=== PATIENT | male | born 1965 | race Caucasian/White ===

== ENCOUNTER 2022-09-06 18:48 | Emergency (ER) | payer OTHER ==
[~2022-09-06] VITALS: Ht 167.6 cm; Wt 65.8 kg
[2022-09-06 19:14] VITALS: BP_SYST 151
--- NOTE | 2022-09-06 19:45 | NUR ---
Dr Murrell evaluating patient in the triage room
--- NOTE | 2022-09-06 19:50 | NUR ---
Pt on ultrasound at this time
[2022-09-06 20:56] LABS: BASOPHILS # (AUTO) 0.1 K/uL (0.0-0.2); BASOPHILS % (AUTO) 0.7 % (0.0-2.0); EOSINOPHILS # (AUTO) 0.2 K/uL (0.0-0.4); EOSINOPHILS % (AUTO) 2.1 % (0.0-4.0); HEMATOCRIT 38.3 % (36-54); HEMOGLOBIN 12.8 g/dL (14.0-18.0); LYMPHOCYTES # (AUTO) 1.2 K/uL (1.0-5.5); LYMPHOCYTES % (AUTO) 13.1 % (20.5-51.5); MEAN CORPUSCULAR HEMOGLOBIN 33 pg (27-31); MEAN CORPUSCULAR HGB CONC 33 % (32-36); MEAN CORPUSCULAR VOLUME 99 fL (79.0-98.0); MONOCYTES # (AUTO) 1.1 K/uL (0.0-1.0); MONOCYTES % (AUTO) 12.6 % (1.7-9.3); NEUTROPHILS # (AUTO) 6.5 K/uL (1.8-7.7); NEUTROPHILS % (AUTO) 71.5 % (40.0-70.0); PLATELET COUNT (AUTO) 131 K/uL (130-430); RED BLOOD CELL COUNT(AUTO) 3.88 MIL/uL (4.2-6.2); RED CELL DISTRIBUTION WIDTH 13.7 % (9.0-15.0); WHITE BLOOD COUNT (AUTO) 9.1 K/uL (4.8-10.8)
[2022-09-06 21:02] LABS: CALCIUM 8.5 mg/dL (8.4-11.0); CREATININE 0.87 mg/dL (0.55-1.30)
[2022-09-06 21:07] LABS: ALBUMIN 2.7 g/dL (3.4-4.8); C-REACTIVE PROTEIN QUANT 1.2 mg/dL (0-0.5); TOTAL BILIRUBIN 0.9 mg/dL (0.0-1.0)
[2022-09-06 21:10] LABS: INR 1.3 (0.80-1.20); PROTHROMBIN TIME 12.8 SECS (9.5-12.5)
--- NOTE | 2022-09-06 21:16 | NUR ---
Pt brought by self, ALert and appropiate to age , pt presents to ER with redness and pain on L lower leg , pt has Hx of drug abuse, afebrile, skin pink and warm, cap refill <3.
--- NOTE | 2022-09-06 21:30 | NUR ---
Pt A&Ox4, VSS, respirations even and unlabored.
[2022-09-06] MEDS ORDERED: CLIN-22 PO (21:55)
--- NOTE | 2022-09-06 22:30 | NUR ---
Report given to Dory GUEVARA
[2022-09-06 23:38] VITALS: BP_SYST 151
--- NOTE | 2022-09-06 23:41 | NUR ---
Patient given written and verbal discharge instructions and verbalizes understanding. ER DR. MEJIA discussed with patient the results and treatment provided. Patient in stable condition. ID arm band removed. Rx of clindamycin given. Patient educated on pain management and to follow up with PMD. Pain Scale 0. Opportunity for questions provided and answered. Medication side effect fact sheet provided.
== END 2022-09-06 23:38 | disposition home or self-care (01) ==
LOC: SED 18:48
DX: L03.116 Cellulitis of left lower limb (principal); Z79.899 Other long term (current) drug therapy
CPT/HCPCS: 36415; 73590-TC; 80053; 83605; 85025; 85610-TC; 85730-TC; 86140; 93971; 99285